=== PATIENT | female | born 1940 | race Caucasian/White ===

== ENCOUNTER 2017-04-13 22:53 | Inpatient (IN) ==
[2017-04-14] MEDS ORDERED: NS 1,000 ML IV ONE (00:31)
[2017-04-14] MEDS ORDERED: ZOFRAN IV PRN (00:31)
[2017-04-14] MEDS ORDERED: NICODERM PATCH TD PRN (00:32)
--- NOTE | 2017-04-14 02:59 | HISTORY AND PHYSICAL ---
CHIEF COMPLAINT: Dizziness and presyncope or a fainting episode. HISTORY OF PRESENT ILLNESS: Briefly, this is a 77-year-old female with history of hypertension and diabetes. She came in from home today, initially presented to [facility] with confusion and agitation for the last 3 or 4 days. She had a stomach flu-type episode of nausea, vomiting and diarrhea that is resolved as of 2 days ago. She has not been eating and drinking very well. The family has noted that she has been getting more and more confused. This is been going on for several, probably weeks, but has been getting more agitated over the last 3-4 days. Today she felt faint to the point where she thought she was going to pass out, did not completely pass out. She said she knew she would have fallen if she had not fallen. She would have passed out if she had not sat down. She did not actually pass out. She came the ER for evaluation. Her labs were basically normal. She had a head CT, and chest x-ray from 1 understand was unremarkable, no acute process. She is on hypothyroid, blood pressure and diabetic medications, but she only takes those medications very intermittently, and has not been to the PCP. Family noted that she was kind of hallucinating, talking to people that were not there. She was somewhat agitated. Her granddaughter is a nurse at our facility and states that she has been concerned about the fact that she was possibly developing dementia which had not been treated per se; however, again her workup there was really unremarkable. PAST MEDICAL HISTORY: 1. Type 2 diabetes, [id number]. 2. Hypertension. 3. Dyslipidemia. 4. Hypothyroidism. 5. Rheumatoid arthritis. PAST SURGICAL HISTORY: She has had a cholecystectomy. ALLERGIES: No known drug allergies. SOCIAL HISTORY: She smokes a pack a day. She has been doing that on and off for about 40 years, but she quit for about 6 or 7 years; now she is back to smoking. MEDICATION LIST: Being compiled, but she is on: 1. Metformin. 2. [place] p.r.n. 3. Verapamil. 4. Synthroid 50. 5. Lisinopril 5. REVIEW OF SYSTEMS: She has had reportedly a 40-pound weight loss over the last year. She denies any appetite issues, but otherwise denies chest pain or palpitation. She does admit to a cough which has been chronic. No fevers or chills. She has had the recent nausea, vomiting and diarrhea, but that has resolved. No hematochezia, no melena. PHYSICAL EXAMINATION: VITAL SIGNS: 172/74 blood pressure, heart rate 92, temperature 98.2, 94% on room air. 102 pounds. GENERALLY: Thin female, pleasant, in no acute distress. HEAD: Normocephalic, atraumatic. She is moran, but has numerous actinic keratoses along her forehead. HEENT: Pupils equal, round, and reactive to light. Extraocular movements were intact. On ear, nose and throat exam she had moist mucous membranes. NECK: Supple. No bruits. CARDIOVASCULAR: Regular rate and rhythm. No murmurs, gallops, or rubs. PULMONARY: Bilateral breath sounds clear to auscultation. GI: Soft, nontender, nondistended. Bowel sounds are positive. EXTREMITIES: No clubbing or cyanosis. LYMPHATICS: No peripheral edema. NEUROLOGICAL: Cranial nerves 2 through 12 were intact. However, lyxigl-tksw-vtsbwf there was distinct past pointing, more so on her left side than her right, but when her right was repeated she had dysmetria then too. She had trouble with the juks-ks-jrup task, but no noted dysdiadochokinesia. LABORATORY DATA: From outlying facility was really not too remarkable. Her EKG showed normal sinus rhythm, possible septal infarct. Her CBC I think was pretty much normal. There was no white count. Her cardiac enzymes were negative. She had a high hemoglobin and hematocrit of 16 and 52, somewhat elevated anion gap, but there was no acidosis. Her bicarbonate was normal at 23. BUN was 21. Head CT and chest x-ray again were reportedly clear; I have not directly seen those. ASSESSMENT: This is a 77-year-old female with history of hypertension and diabetes presenting with a confusion, acute encephalopathy episode and presyncope. PROBLEMS: 1. Presyncope. We will monitor on telemetry. Get serial cardiac enzymes and follow closely. Obtain carotid and echo. Continue gentle hydration and monitor. 2. Altered mentation. She does apparently have ataxia. There is some confusion. She has some listing, although it is not one versus the other, and she does exhibit dysmetria which makes me concerned about a cerebellar problem such as a cerebellar ataxia issue. We will progress with an MRI tomorrow if feasible to evaluate for infratentorial disease. There is no evidence of other disease. We will initiate aspirin therapy and follow. 3. Diabetes. Check blood sugars, fasting sugars. Sliding scale insulin. Check an A1c and monitor. 4. Hypertension. We may require further medications. Will continue to monitor closely. DISPOSITION: Pending her clinical status. I will get Physical Therapy to work with her because she does have difficulty with her gait, and will get Central Control Room Operator to help with discharge planning. cc: MD Kaylyn Medina MD
[2017-04-14 04:54] LABS: HEMATOCRIT 47.3 % (37.0-47.0); HEMOGLOBIN 15.9 g/dL (12.0-16.0); MCHC 33.6 g/dL (33-37); MCV 80.4 FL (81-99); RBC 5.88 XMIL (4.2-5.4)
[2017-04-14 05:08] LABS: HEMOGLOBIN A1C 6.3 % (4.8-6.0)
[2017-04-14 05:58] LABS: ALBUMIN 3.9 g/dL (3.5-5.0); ALKALINE PHOSPHATASE 65 U/L (32-104); DIRECT BILIRUBIN < 0.20 mg/dL (0.00-0.20); GOT 21 U/L (10-30); GPT 14 U/L (10-36); TOTAL BILIRUBIN 0.59 mg/dL (0.20-1.00); TOTAL PROTEIN 7.2 g/dL (6.3-8.3)
[2017-04-14] MEDS: LOVENOX SUBQ SCH (06:06)
[2017-04-14] MEDS: HUMULIN R SUBQ SCH ×4 (06:41→21:26)
[2017-04-14 09:13] LABS: URINE MICRO REVIEW NEEDED? NO; URINE SOURCE CLEAN CATCH
[2017-04-14 09:16] LABS: BILIRUBIN URINE NEGATIVE (NEGATIVE); BLOOD URINE SMALL (NEGATIVE); COLOR YELLOW; GLUCOSE URINE NEGATIVE (NEGATIVE); LEUKOCYTES URINE MODERATE (NEGATIVE); NITRITE URINE NEGATIVE (NEGATIVE); PH URINE 5.5; PROTEIN URINE 50 mg/dL (NEGATIVE); SP GRAVITY URINE 1.023; TURBIDITY URINE CLEAR (CLEAR); UR EPITHELIAL CELLS <10 /HPF (<10); URINE BACTERIA NEGATIVE /HPF; URINE CULTURE NEEDED? YES; URINE RBC <10 /HPF (<10); UROBILINOGEN URINE NORMAL (NORMAL)
[2017-04-14] MEDS ORDERED: ATIVAN PO ONE (10:07)
--- NOTE | 2017-04-14 11:26 | Diag Imaging Result Doc PS360 ---
EXAM: MRI BRAIN W W/O CONTRAST HISTORY: cva TECHNIQUE: MRI of the brain with and without gadolinium, T1 axial and sagittal, DWI, flair, T2 axial, gradient echo coronal and post gadolinium enhanced FSPGR 3-D axial with coronal reformation. COMMENT: There is no evidence of restricted diffusion. There is extensive abnormal T2 weighted signal intensity throughout the white matter both hemispheres both in the periventricular regions and some subcortical regions particularly in the centrum semiovale and frontal lobes. There is no evidence of bleed or abnormal extra-axial fluid collection. There is no evidence of abnormal gadolinium enhancement. IMPRESSION: Extensive chronic ischemic white matter change. No evidence of acute infarct or other acute abnormality. Electronically signed by Brayden Pacheco 04/14/2017 11:24 AM
[2017-04-14] MEDS: ASPIRIN EC PO SCH (11:41)
--- NOTE | 2017-04-14 13:44 | PROGRESS NOTE ---
DATE: 04/14/2017 SUBJECTIVE: This is a 77-year-old with a history of hypertension and diabetes, came in yesterday with dizziness, presyncope, and fainting spell. She originally presented to [facility] with confusion and agitation for 3-4 days, stomach flu-like episode, nausea, vomiting, and diarrhea; resolved 2 days ago. She has not been eating or drinking very well. Family noted that she had been getting more and more confused and it had been going on for several weeks and getting more agitated in the last 3-4 days. The day of admission she felt faint to the point that she thought she was going to pass out, did not completely pass out. She said she knew she would have fallen if she had gotten up and would have passed out if she had not sat down. Came to the emergency room. PAST MEDICAL HISTORY: Diabetes mellitus type 2, hypertension, dyslipidemia, hypothyroidism, rheumatoid arthritis. So presented with presyncope, altered mentation, a little more confusion which has been going on for a while, and history of diabetes. Her MRI of her head showed extensive chronic ischemia white matter change. No evidence of acute infarct or acute abnormality. She states that she still feels like her left side, her lining feller blindstitch strength and the left side of her leg are a little weak, although she is lifting that foot off the bed and her left lining feller blindstitch strength is 4. There are some words that seem to be hard for her to formulate. I do not see any facial asymmetry. No weakness in the left shoulder shrug but left lining feller blindstitch strength and possibly diminished strength in the left foot. SUBJECTIVE: General: Otherwise today she is awake and alert. No complaints of pain. vital signs: Remained afebrile. Temperature 99.1 degrees, pulse 85, respirations 23, blood pressure 171/69. Lungs: Clear in all lung gillette. Cardiovascular: Regular rhythm and rate without murmur or S3. Abdomen: Soft. Skin: Warm and dry. LABORATORY: White blood cell count 7,750, hematocrit 47, platelet count 199,000. Electrolytes: Hemoglobin A1c was 6.3. Otherwise creatinine and liver functions looked okay. Urinalysis unremarkable. ASSESSMENT AND PLAN: Admitted by Dr. Chester early this morning. 1. Presyncope. Continue present hydration and monitor. Will check carotid studies and echocardiogram. I am not sure if she has had a right hemisphere event or not. MRI did not reveal anything. 2. Altered mentation. Apparently has little ataxia, some confusion. This might be multifactorial. It sounds like she may have some underlying dementia as well. 3. Diabetes mellitus type 2. Follow pattern sugars. Hypertension. REVIEW OF HER ORDERS: I am going to ask neurology to see. cc: Lele Covarrubias MD
--- NOTE | 2017-04-14 17:34 | ECHO REPORT ---
ORDER DATE: 04/14/2017 INTERPRETING PHYSICIAN: Dr. Franco REQUESTING PHYSICIAN: CLINICAL INDICATIONS: Stroke, dizziness, presyncope. M-MODE MEASUREMENTS: Right ventricle: 3.1 cm. Left ventricle end diastole: 4.3 cm. Left ventricle end systole: 2.8 cm. Posterior wall: 1.1 cm. Interventricular septum: 1.1 cm. Left atrium: 4.0 cm. Aortic root: 2.6 cm. SUMMARY OF 2-DIMENSIONAL IMAGING: The left ventricular function is normal. Ejection fraction estimated at 68%. The ventricle is mildly enlarged. The aortic valve shows sclerosis of the cusps. There is no stenosis. Color flow mapping indicates a mild degree of regurgitation. The pulmonic valve looks normal with a mild degree of regurgitation. The tricuspid valve shows a vljk-mw-vxbriiwe degree of regurgitation. Pulmonary pressure estimated at 43-48 mmHg. The mitral valve looks normal. Color flow mapping indicates a mild degree of regurgitation. Pulse wave Doppler of mitral inflow shows reversal of the E and the A wave. Tissue Doppler of septal and lateral mitral annulus averages 5 cm per second. There is impaired left ventricular relaxation. Pulmonary venous flow shows a normal pattern. The left atrium is probably mildly enlarged. There is no pericardial effusion, masses or thrombus. IMPRESSION: In summary, this study shows: 1. Normal left ventricular systolic function. 2. Mild degree of mitral, aortic, and pulmonic regurgitation. 3. Moderate degree of tricuspid regurgitation with pulmonary pressure of 43-48 mmHg. 4. Impaired left ventricular relaxation noted. Clinical correlation recommended. cc: MD Chano Cardozo MD
[2017-04-14] MEDS: TYLENOL PO PRN (20:01)
--- NOTE | 2017-04-14 20:38 | CONSULTATION ---
DATE OF CONSULTATION: 04/14/2017 REASON FOR CONSULT: Syncope. HISTORY OF PRESENT ILLNESS: This is a 77-year-old right-handed female , with history of hypertension, diabetes and dyslipidemia who was admitted yesterday for dizziness with presyncope. There are several family members at bedside who provide the history. They report that the patient has had memory problems for at least the last 3 or so years. They have noticed that she tells the same story and that her executive functions have been limited. She has also not been taking her medications at least for the last month and a half, as if she ran out and did not bother to fill them. There is some concern that she does not take her medications accurately anyway. She is living at home alone, but does have someone there coming from time to time to help her out. She had been driving at 1 point, though the family is concerned about her driving abilities. More recently, she had a stomach virus that resolved maybe 3 or 4 days ago. This included nausea, vomiting and diarrhea. She had not been eating or drinking well at that time or since that time. Since she has gotten sick, she has had worsening confusion and agitation. Yesterday, she felt as though she might pass out. She was dizzy and lightheaded as though she would faint and was unable to stand up and felt that she needed to sit back down. They also report she has had some visual hallucinations where she for instance saw a cigarette coming out of her son's nose. She has also talked to people that are not there. She has at times not been able to identify family members. They say her current symptoms wax and wane. Yesterday was a better day than today, but then the day prior may have been worse. PAST MEDICAL HISTORY: Type 2 diabetes, hypertension, dyslipidemia, hypothyroidism, rheumatoid arthritis, cholecystectomy. SOCIAL HISTORY: She is a current smoker. No alcohol or illicits. She lives alone and has a helper that comes to the home to help out. She had been driving. HOME MEDICATIONS: Metformin, [place] p.r.n., verapamil, Synthroid and lisinopril. Though again, she had several bottles that were a month and a half old and were empty. ALLERGIES: No known drug allergies. FAMILY HISTORY: Noncontributory. REVIEW OF SYSTEMS: Per the record, she had reportedly had a 40 pound weight loss over the last year. There were no appetite issues. No chest pain. No palpitations. There has been a chronic cough, no fevers, no chills. She did have recent nausea vomiting and diarrhea, resolving 3-4 days ago. She has complained recently that her "kidneys" have been hurting. PHYSICAL EXAMINATION: Vital Signs: She has been afebrile, blood pressure 174/ 91, pulse 78, respirations 18. 94% on room air. General: This is an elderly female asleep, sitting up in bed, in no acute distress. She arouses to voice. HEENT: Mucous membranes are dry. Otherwise, unremarkable. Neck: Supple. No meningismus. Trachea midline. Cardiovascular : No edema, intact pulses. Lungs: No increased work of breathing. Normal chest rise and expansion. Abdomen: Soft, nontender, nondistended. Extremities: Warm, well perfused. No edema. Skin: Warm, dry, and intact. Neurologic: Mental status: She is asleep, initially arouses to voice and is able to remain awake. She sometimes stares off and is slow to respond and other times this is not present. She recognizes one family member, but then thinks her son is her [id number]-[id number] at . She does not know the president, but apparently would not know this anyway. She is not oriented to timing other than the month of March. She believes that she is at home. Follows simple and complex commands. Although at times, does have some difficulty with this. She requires frequent redirecting during the extended physical examination for her to properly participate. Cranial nerves: PERRL, conjugate gaze. Ocular movements are full. There may be some limitation of upgaze, but this is not definite and may be due to her confusion and inability to adequately follow the command. Face symmetric with equal activation. Facial sensation intact. Tongue is midline. Shoulder shrug full. Motor examination: No drift. Strength requires significant patience and redirecting, but I do not find any asymmetry on testing. Sensory exam is intact to light touch. Also to vibration and to joint position sense. Coordination: This is somewhat limited on testing due to her inability to understand all of the commands. She is not always accurate with finger to nose on either side, although again this is inconsistent and with extensive reorienting, she is able to perform these maneuvers. On the left arm , she adds in an additional step to finger to nose where she touches her knee in between. Reflexes are symmetric and reduced throughout. No clonus. Toes are mute. Gait: She is able to get to a standing position without assistance. She is able to walk casually without assistance. She does overall appear to be unsteady, but there is no focal listing to one side or the other. She is able to stand with her eyes closed, although tends to want to list backwards. She is able to correct it on her own usually, although certainly has the potential to fall. DIAGNOSTICS: MRI of the brain with and without contrast performed today was personally reviewed. There are extensive chronic white matter ischemic changes, but nothing acute. There is also global atrophy noted. LABORATORY: Reviewed in the chart. Of note, her urinalysis was showing 50 protein, 20 ketones, small blood, moderate leukocytes and 10-20 white blood cells, but no bacteria, less than 10 epithelial cells. Her liver function tests were not elevated. B12 378 , folate 23.6, TSH 0.96. CRP 3. Hemoglobin A1c was 6.3, white count normal. ASSESSMENT AND PLAN: A 77-year-old right-handed female with history of hypertension, diabetes, dyslipidemia, as well as long-standing history of what sounds to be at least mild cognitive impairment, but most likely an undiagnosed dementia process, presenting with encephalopathy and presyncopal episode in the setting of a recent stomach virus with reduced PO intake. Of note, she has also run out of her home medications and has not apparently had these filled for the last month and a half. With regards to her global encephalopathy, I suspect this is potentially related to a possible urinary tract infection as well as recent gastrointestinal illness with reduced p.o. intake in a patient that has an undiagnosed dementia process, making this a more dramatic change and more protracted that we would see. If such, it should improve with time and supportive care. I will order an EEG for further evaluation and can also evaluate the severity of the encephalopathy. I will add on an ammonia level. Her MRI did not show any acute findings which is reassuring, though global atrophy was noted. Additionally, the patient seems to have run out of her medications at home and/or may very well not be taking them correctly it sounds. This could be contributing as well. With regards to the presyncopal event, this potentially is related to the gastrointestinal illness and reduced p.o. intake, but it does not sound per history that there was actually loss of consciousness, and per their report, there has not been any previous loss of consciousness. I agree with telemetry monitoring and again will order an EEG. Thank you for this consultation. I will follow. cc: Suzy Nj MD MTDD
[2017-04-14] MEDS: NICODERM PATCH TD SCH (21:25)
[2017-04-15 02:09] LABS: BASO% 0.6 % (0.0-0.8); EOS# 0.03 X1000 (0.0-0.7); EOS% 0.4 % (0.0-10.0); HEMATOCRIT 48.2 % (37.0-47.0); HEMOGLOBIN 15.8 g/dL (12.0-16.0); IMM GRAN# 0.02 X1000 (0.0-0.04); IMM GRAN% 0.2 % (0.0-0.5); LYMPH# 2.78 X1000 (1.2-3.4); LYMPH% 32.5 % (20.5-51.1); MANUAL DIFF NEEDED? NO; MCH 26.2 PG (27-31); MCHC 32.8 g/dL (33-37); MCV 79.9 FL (81-99); MONO# 0.86 X1000 (0.11-0.59); MONO% 10.1 % (1.7-9.3); MPV 10.8 FL (7.4-10.4); NEUT% 56.2 % (42.2-75.2); PLT 212 X1000 (130-400); RBC 6.03 XMIL (4.2-5.4)
[2017-04-15 02:20] LABS: AGAP 10; ALBUMIN 3.7 g/dL (3.5-5.0); ALKALINE PHOSPHATASE 59 U/L (32-104); BUN 20 mg/dL (8-22); CHLORIDE 97 mmol/L (98-107); COSMO 273; GOT 22 U/L (10-30); GPT 14 U/L (10-36); POTASSIUM 4.3 mmol/L (3.5-5.1); SODIUM 136 mmol/L (136-145); TCO2 29 mmol/L (25-35); TOTAL BILIRUBIN 0.66 mg/dL (0.20-1.00); TOTAL PROTEIN 6.8 g/dL (6.3-8.3)
[2017-04-15] MEDS: ROCEPHIN 1 GM in NS 50 ML IV SCH (03:15)
[2017-04-15] MEDS: LOVENOX SUBQ SCH (05:32)
[2017-04-15] MEDS: HUMULIN R SUBQ SCH ×4 (06:49→22:51)
[2017-04-15] MEDS: NICODERM PATCH TD SCH (12:12)
[2017-04-15] MEDS: ASPIRIN EC PO SCH (12:12)
[2017-04-15] MEDS: TYLENOL PO PRN (14:33)
--- NOTE | 2017-04-15 16:33 | EEG REPORT ---
DATE: 04/15/2017 REFERRING PHYSICIAN: Suzy Nj MD; Lele Covarrubias MD. EEG NUMBER: [id number]. AUXILIARY POWER EQUIPMENT OPERATOR: Rosa Austin. BACKGROUND INFORMATION TECHNIQUE: A digitally recorded EEG is obtained with 1 additional channel for EKG. HISTORY OF PRESENT ILLNESS: This is a 77-year-old female with presyncope or syncope, altered mental status. EEG is ordered to detect evidence of possible seizures. Medications include p.r.n. Ativan, aspirin, ceftriaxone, nicotine, Zofran. EEG FINDINGS: A posterior dominant alpha rhythm is notably absent. The background consists of mixed theta greater than delta range frequencies with admixed faster frequencies. Frontal intermittent rhythmic delta activity (FIRDA) is noted. No definite epileptiform discharges. No seizures. Hyperventilation was not performed. Photic stimulation did not alter the record. Brief drowsiness is seen but stage II sleep is not achieved. The EKG reveals regular RR intervals. IMPRESSION AND CLINICAL CORRELATION: Abnormal routine EEG due to 1. Mild to moderate generalized background slowing with FIRDA, indicative of a mild to moderate nonspecific encephalopathy. Generalized slowing is a nonspecific finding that can be seen in processes that diffusely affect the cerebrum, including toxic, metabolic, post hypoxic, pharmacologic, and infectious etiologies. FIRDA is also a nonspecific finding but can be seen in metabolic encephalopathies and certain midline lesions. No epileptiform discharges and no seizures are noted on the current study. This does not rule out an underlying seizure disorder. Clinical correlation is advised. cc: Suzy Nj MD MTDD
--- NOTE | 2017-04-15 18:00 | PROGRESS NOTE ---
DATE: 04/15/2017 SUBJECTIVE: Ms. Castro is feeling better today. She has not had any more events to suggest presyncope. Carotid studies, echocardiogram all reviewed, unremarkable. Brain MRI was unremarkable. Echocardiogram, good left ventricular function. MRI showed extensive chronic ischemic white matter. No evidence of acute infarct. Dr. Nj evaluated yesterday. She is considering doing an EGD. So far workup unremarkable. I reviewed orders. cc: Lele Covarrubias MD
--- NOTE | 2017-04-15 19:30 | Diag Imaging Result Doc PS360 ---
EXAM: CHEST-2 VIEWS - 04/15/2017 HISTORY: Productive cough/fever TECHNIQUE: Chest two views COMPARISON: None. FINDINGS: There is mild cardiomegaly. Apparent mild COPD changes. There is mild infiltrate or scarring at the right base, there is slight pleural thickening at the lateral right base. There is no dense consolidation, substantial pleural effusion, or pneumothorax identified. 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 IMPRESSION: Mild cardiomegaly. Mild COPD changes. Mild infiltrate or scarring at right base. The possibility of bronchopneumonia cannot be excluded. Electronically signed by Dov Oliva 04/15/2017 7:27 PM
[2017-04-15] MEDS ORDERED: TESSALON PO PRN (21:06)
[2017-04-15] MEDS ORDERED: DUONEB (A & A) INH PRN (21:06)
[2017-04-15] MEDS ORDERED: ZITHROMAX 500 MG/NS 500 MG/250 ML IVPB IV SCH (21:15)
--- NOTE | 2017-04-15 21:54 | PROGRESS NOTE ---
DATE: 04/15/2017 SUBJECTIVE: Patient is doing better today. She has been ambulating to the bathroom unassisted. She is more alert and has been more interactive and spontaneous. She has recognized her family members more readily although there is still some confusion at times. She is not at her baseline. OBJECTIVE: Vital signs: She has had some mild fever overnight and this morning , currently afebrile, blood pressure 137/59, pulse 70s. General: This is an elderly female , sitting up in bed, in no acute distress. She is awake when I enter the room. Her family is at bedside. She regards. HEENT: Mucous membranes are dry. Neck: Supple. No meningismus. Mental status: When I enter the room regards easily. She is a bit more spontaneous today and certainly more alert. She does have some periods where she is slower to respond and still requires some redirection though not to the extent that she was requiring yesterday. Identified her 2 sons in the room. Oriented to self. She is not otherwise oriented with the exception of the month of March. She is able to follow simple and complex commands. She has some difficulty with left/right distinction, but not with digit distinction. Cranial nerves PERRL, conjugate gaze. Ocular movements intact in the horizontal direction. Symmetric with equal activation. Tongue is midline. Shoulder shrug full. Motor exam no drift. No asymmetry on strength testing. Sensation was intact. She is accurate with [id number]-fk-[id number] on the right, although she initially had some over shooting with the left. Yesterday she had overshooting on both sides. She is able to correct this with redirecting, however. No clonus. Toes are mute. I do not see the listing backwards that I was seeing yesterday. Lab work was reviewed. Notable normal white count. Urinalysis preliminary was no growth. Ammonia level was within normal limits. EEG was personally reviewed and shows mild to moderate generalized slowing with FIRDA. This is nonspecific and consistent with a mild to moderate nonspecific encephalopathy. No epileptiform discharges or seizures were noted on the current study. ASSESSMENT AND PLAN: 1. Global encephalopathy in the setting of stomach virus and reduced p.o. intake as well as possible contribution from not properly taking her home medications and this is all in setting of someone with a likely undiagnosed dementia process. Clinically improved today compared to yesterday, but not baseline. Now with fevers overnight. Urine culture was preliminary no growth. She has been coughing quite a bit so a chest x-ray may be warranted. She does not have meningismus. It is reassuring that she has shown some notable improvement in the last 24 hours and I suspect she will continue to gradually improve. The EEG also did not show any evidence of increased propensity for seizures. An ammonia level was normal. She has not had any further presyncopal events. cc: Suzy Nj MD MTDD
[2017-04-16] MEDS ORDERED: MELATONIN PO ONE (01:04)
[2017-04-16] MEDS: ROCEPHIN 1 GM in NS 50 ML IV SCH (04:09)
[2017-04-16] MEDS: PRINIVIL PO SCH ×2 (05:56→09:34)
[2017-04-16] MEDS: LOVENOX SUBQ SCH (05:56)
[2017-04-16] MEDS: HUMULIN R SUBQ SCH ×3 (06:01→16:41)
--- NOTE | 2017-04-16 07:58 | Carotid Study ---
DATE: 04/14/2017 PROCEDURE: Bilateral duplex and color flow imaging of the carotid arteries was performed using the GE Vivid E9 ultrasound system with a 9L-D transducer. REFERRING PHYSICIAN: Chano Chester MD. INTERPRETING PHYSICIAN: Kar Mak MD. TECH: Jonathan. INDICATIONS: TIA with ataxia and altered mental status. OBSERVED DATA RIGHT LEFT Brachial Blood Pressure Carotid Pulse Bruits: Carotid/Sub DIAGRAM OF ULTRASOUND IMAGING R L RIGHT INT EXT INT EXT LEFT Freeman (cm/s) Freeman (cm/s) Subclavian 137/0 Subclavian 127/0 CCA Proximal 87/11 CCA Proximal 79/12 CCA Distal 63/10 CCA Distal 66/10 Bulb 77/12 Bulb 125/19 ICA Proximal 94/17 ICA Proximal 87/22 ICA Mid 100/23 ICA Mid 83/23 ICA Distal 88/20 ICA Distal 92/19 ECA 270/15 ECA 175/11 Vertebral Not seen. Vertebral 87/15 A ICA/CCA Ratio 1.15 ICA/CCA Ratio 1.17 % Stenosis 0-39 % Stenosis 0-39 FINDINGS: There appears to be irregular calcific plaques at the level of the carotid bulbs which at this time, although visually significant, do not produce a hemodynamically significant flow- limiting stenosis by strict velocity criteria. 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 INTERPRETATION: Although there is no hemodynamically significant flow-limiting stenosis noted by strict velocity criteria, visually, the patient does have irregular calcific plaque noted to bilateral carotid arteries at the level of the bulb which may merit short-interval followup. 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 There appears to be some collateralization per the manometer technician's notes. Given these findings, a CT angiography may be merited. cc: MD Chano Gallegos MD
[2017-04-16] MEDS: NICODERM PATCH TD SCH (09:34)
[2017-04-16] MEDS: ASPIRIN EC PO SCH (09:34)
--- NOTE | 2017-04-16 14:14 | PROGRESS NOTE ---
DATE: 04/16/2017 Ms. Castro is awake, alert, attentive. I believe she is more spontaneous today than before. Speech is not dysarthric now. Language function is intact on brief testing. I did not test her cognitive function. I observed her standing and walking with a slightly apractic and unsteady gait. Discussed at some length with son at the bedside. NEUROLOGY IMPRESSION: She has a baseline cognitive impairment syndrome. In that setting, any toxic or metabolic disturbance is likely to be associated with more dramatic and more protracted global encephalopathy, features that are consistent with her clinical course. Brain MRI 04/14/2017 showed chronic changes, but nothing focal or acute. That is reassuring. I do not think we need anything further from neurologic standpoint. I discussed cholinesterase inhibitor trial with son and that might be considered when she is stable medically. No new suggestions today from a neurologic standpoint. cc: Shani Cota III, MD MTDD
[2017-04-16 15:57] VITALS: BP 164/54
--- NOTE | 2017-04-16 17:16 | PROGRESS NOTE ---
DATE: 04/16/2017 SUBJECTIVE: Ms. Castro is better. She wants to go home. She is sitting up. She is eating a little bit but family is frustrated that she is not eating a lot. They want to supplement. We to talked about supplementing with some Glucerna. She is stronger. She is ambulating. The plan is to take her home I think with home health and with 1 of her sons. OBJECTIVE: Vital signs: Temp is 99 degrees, pulse 72, respirations 18, blood pressure 164/54. Lungs: Clear in all lung gillette. Cardiovascular: Regular rhythm and rate without murmur or S3. Abdomen: Soft. Skin: Warm and dry. LABS: No new lab. Blood sugars have been 116, 109, 127. ASSESSMENT AND PLAN: She is more spontaneous and doing better. Baseline cognitive impairment syndrome. In that setting any toxic or metabolic might be associated with more dramatic and more protracted global encephalopathy features consistent with her clinical course. Brain MRI showed chronic changes but nothing focal or acute. So, hope to send her home. We did discuss cholinesterase inhibitor trial with her son. Might be considered if she is stable medically. No other new suggestions. cc: Lele Covarrubias MD
--- NOTE | 2017-04-16 17:22 | DISCHARGE SUMMARY ---
ADMISSION DATE: 04/13/2017 DISCHARGE DATE: Presented with complaints of dizziness, presyncope and fainting episode. 77-year-old with history of hypertension and with diabetes. Came in from home. Initially presented to [facility] with confusion and agitation for the last 3 or 4 days and she had a stomach flu type episode, nausea, vomiting and diarrhea that resolved about 2 days prior. She had not been eating or drinking very well. Family noted she was getting more and more confused and this has been going on for several weeks. Getting more agitated in the last 3 or 4 days. [place] faint to the point where she thought she was going to pass out. Did not completely pass out however. She said she knew she would have fallen if she did not sit down, she would have passed out. She did not actually pass out. She came to the emergency room for evaluation. Her labs were basically normal. A CT and chest x-ray were all unremarkable. Hypothyroid. She is on hypothyroid medicine, blood pressure medicine, diabetic medications. She also takes these medications very intermittently and has not been to her primary care physician in a while. Family noted that she was kind of hallucinating and talking to people that were not there. She was somewhat agitated. Her granddaughter is a nurse at our facility and states that she has been concerned about the fact that she is possibly developing dementia and has not been treated per se. PAST MEDICAL HISTORY: 1. Diabetes mellitus type 2. Not on insulin at this time. 2. Hypertension. 3. Dyslipidemia. 4. Hypothyroidism. 5. Rheumatoid arthritis. PAST SURGICAL HISTORY: She has had a cholecystectomy. So she is admitted for presyncope. She had cardiac enzymes checked and also altered mentation, a concern about cognitive decline with underlying history of diabetes. She had a brain MRI done on 04/14/2017, extensive chronic white matter changes. No evidence of acute infarct or other acute abnormality. She had an echocardiogram done on 04/14/2017 showed normal left ventricular systolic function. Mild degree of mitral aortic and pulmonic regurgitation, mild degree of tricuspid regurgitation. Pulmonary pressure was 43 to 48 mmHg. She had impaired left ventricular relaxation as noted. Dr. Nj was consulted on the and felt like she had longstanding what sounds like at least mild cognitive impairment and most likely undiagnosed dementia process presenting as encephalopathy, presyncopal episodes in the setting of recent stomach virus, reduced p.o. intake. She has run out of her medication, apparently has not filled these the last month and a half and so thought she had some global encephalopathy. She possibly had a urinary tract infection. This was treated but seemed to show improvement. EEG was checked and MRI and it did not reveal any significant findings and may want to try to go home on 04/16/2017 and she is going to go home with her son. I encouraged home health. Follow up chest x-ray on the , mild cardiomegaly, mild COPD mild scarring in the right base. Possibility of pneumonia was included but clinically did not show signs of pneumonia. DISCHARGE MEDICATION: She will take aspirin 81 mg a day, Tessalon Perles p.r.n., Prinivil 5 mg a day, nicotine patch 21 mg p.r.n. daily. cc: Lele Covarrubias MD
== END 2017-04-16 18:22 | disposition home or self-care (01) ==
LOC: 3N 22:53 → SUATTDRO 22:53
PROVIDERS: ATTEND Emergency Medicine

== ENCOUNTER 2018-09-14 10:38 | Observation (INO) ==
[2018-09-14] MEDS ORDERED: TYLENOL PO ONE (10:56)
--- NOTE | 2018-09-14 11:21 | Diag Imaging Result Doc PS360 ---
EXAM: CHEST-2 VIEWS HISTORY: copd fever cough TECHNIQUE: PA and Lateral chest x-ray COMPARISON: 04/15/2017 FINDINGS: There is stable cardiomegaly. Calcific atherosclerotic disease is noted within the aorta. There is pulmonary vascular congestion and bilateral interstitial infiltrates most prominent at the bases. Findings may indicate developing interstitial cardiogenic edema or atypical pneumonia. There is pulmonary emphysema. There are trace bilateral effusions. Surgical hardware lower cervical spine. IMPRESSION: Increasing interstitial infiltrates, likely developing cardiogenic interstitial edema or atypical pneumonia. Trace effusions. Electronically signed by Michelle Scott 09/14/2018 11:19 AM
[2018-09-14 11:23] LABS: INFLUENZA A POSITIVE (NEGATIVE); INFLUENZA B NEGATIVE (NEGATIVE)
[2018-09-14] MEDS ORDERED: TAMIFLU PO ONE (11:39)
[2018-09-14] MEDS ORDERED: ROCEPHIN IV ONE (11:39)
[2018-09-14] MEDS ORDERED: NS 500 ML IV ONE (11:40)
[2018-09-14] MEDS ORDERED: DUONEB (A & A) INH ONE (11:40)
[2018-09-14 11:45] LABS: BILIRUBIN URINE NEGATIVE (NEGATIVE); BLOOD URINE 2+ (NEGATIVE); CLARITY CLEAR (CLEAR); COLOR YELLOW; GLUCOSE URINE NEGATIVE (NEGATIVE); KETONE URINE NEGATIVE (NEGATIVE); LEUKOCYTES URINE NEGATIVE (NEGATIVE); NITRITE URINE NEGATIVE (NEGATIVE); PROTEIN URINE 1+(30 mg/dL) mg/dL (NEGATIVE); UROBILINOGEN URINE NORMAL
[2018-09-14] MEDS ORDERED: ROCEPHIN 1 GM in NS 50 ML IV ONE (11:52)
[2018-09-14 11:54] LABS: URINE EPITHELIAL CELLS <10 /HPF (<10); URINE SOURCE CLEAN CATCH; URINE WBC <10 /HPF (<10)
[2018-09-14 12:05] LABS: BASO# 0.02 X1000 (0.0-0.2); BASO% 0.4 % (0.0-0.8); EOS# 0.04 X1000 (0.0-0.7); EOS% 0.8 % (0.0-10.0); HEMATOCRIT 41.9 % (37.0-47.0); HEMOGLOBIN 13.9 g/dL (12.0-16.0); IMM GRAN# 0.01 X1000 (0.0-0.04); IMM GRAN% 0.2 % (0.0-0.5); LYMPH# 0.56 X1000 (1.2-3.4); LYMPH% 10.7 % (20.5-51.1); MCHC 33.2 g/dL (33-37); MCV 81.4 FL (81-99); MONO# 0.36 X1000 (0.11-0.59); MONO% 6.9 % (1.7-9.3); MPV 9.9 FL (7.4-10.4); NEUT# 4.26 X1000 (1.4-6.5); PLT 201 X1000 (130-400); RBC 5.15 XMIL (4.2-5.4); RDW 14.7 % (11.5-14.5); WBC 5.25 X1000 (4.8-10.8)
[2018-09-14 12:20] LABS: AGAP 12; ALBUMIN 3.3 g/dL (3.5-5.0); ALKALINE PHOSPHATASE 65 U/L (32-104); BUN 16 mg/dL (8-22); CHLORIDE 98 mmol/L (98-107); COSMO 269; CREATININE 0.7 mg/dL (0.5-0.9); ESTIMATED GFR > 60; GLUCOSE 124 mg/dL (70-104); GOT 24 U/L (10-30); GPT 10 U/L (10-36); POTASSIUM 4.3 mmol/L (3.5-5.1); SODIUM 133 mmol/L (136-145); TCO2 24 mmol/L (25-35)
[2018-09-14] MEDS ORDERED: NS 1,000 ML ONE (12:21)
--- NOTE | 2018-09-14 13:52 | PROVIDER DOCUMENTATION ---
This chart was entered by Sosa Bain Scribe, acting as scribe for Abena Ramirez MD. HPI-General Adult - General Chief Complaint: General Adult Stated Complaint: DEMENTIA / UTI Time Seen by Provider: 09/14/18 11:30 Source: patient Allergies/Adverse Reactions: Patient Allergies Allergy/AdvReac Type Severity Reaction Status Date / Time No Known Allergies Allergy Verified 01/01/18 06:09 Home Medications: Home Medication List Medication Instructions Recorded Confirmed Last Taken Type Levothyroxine [Synthroid] 50 microgm PO DAILY 04/14/17 04/14/17 Unknown History Lisinopril 5 mg PO DAILY 04/14/17 04/14/17 Unknown History Metformin HCl [Metformin HCl ER] 500 mg PO DAILY 04/14/17 04/14/17 Unknown History Aspirin EC 81 mg PO DAILY tablet 04/16/17 Unknown Rx Benzonatate [Tessalon] 100 mg PO TID PRN PRN #40 capsule 04/16/17 Unknown Rx Nicotine Patch [Nicoderm Patch] 21 mg TD DAILY #14 patch.[id number] 04/16/17 Unknown Rx - History of Present Illness -Gen Adult Nature of Presenting Problems: Patient is a 78 year old female who presents to the ED with flu like symptoms. Patient states symptoms of fever, body aches, nasal drainage, sore throat and cough. Patient states symptoms started yesterday. Patient denies vomiting and diarrhea. Location of Pain/Injury: reports: generalized Pain Radiation: reports: no radiation Quality of Pain: reports: aching Severity: reports: mild Onset/Duration: reports: 24 hours ago Timing: reports: still present Context/Activities at Onset: reports: light activity Modifying Factors: improves with: nothing Associated Symptoms: reports: cough, EENT symptoms (sore throat), fever/chills ( fever), sinus congestion/drainage (drainage) Similar Symptoms Previously?: Yes (present since yesterday) Recently seen or treated by another doctor?: No Review of Systems - Adult - REVIEW OF SYSTEMS - ADULT Constitutional: reports: fever. denies: chills, fatique Eyes: reports: no symptoms reported Ears, Nose, Mouth & Throat: reports: sinus problem (drainage), throat pain. denies: ear pain, nose pain Cardiovascular: reports: no symptoms reported Respiratory: reports: cough. denies: shortness of breath, wheezing Gastrointestinal: reports: no symptoms reported Genitourinary: reports: no symptoms reported Musculoskeletal: reports: muscle aches. denies: back pain, neck pain Integumentary: reports: no symptoms reported Neurological: reports: no symptoms reported Psychiatric: reports: no symptoms reported Endocrine: reports: no symptoms reported Hematologic/Lymphatic: reports: no symptoms reported Allergic/Immunologic: reports: no symptoms reported All Other Systems: Reviewed and Negative Past History - Adult - PAST MEDICAL HISTORY-ADULT Review of Records: reports: Nursing Assessment Review, Medications Reviewed, Social history reviewed & non-contributory. Major Childhood Illnesses: reports: denies history Cardiovascular: reports: HTN, hyperlipidemia Respiratory: reports: denies history Gastrointestinal: reports: denies history Obstetrical/Gynecological: reports: denies history Genitourinary: reports: denies history Musculoskeletal: reports: denies history Neurological: reports: dementia Psychiatric: reports: denies history Endocrine/Immune: reports: Diabetes, thyroid disorder Other Conditions: reports: denies history - PRIOR SURGERIES/PROCEDURES Surgical/Procedure History: reports: reviewed, not pertinent - IMMUNIZATION STATUS Childhood Immunizations: See Nurse Assessment Flu Vaccine: See Nurse Assessment - FAMILY HISTORY Family History: reviewed, not pertinent - SOCIAL HISTORY Smoking: cigarettes, greater than 1 pack/day Provider spent 3-5 mins advising pt. on dangers of tobacco.: Discussed manners to quit use, and f/u contacts for add'l counseling. Substance Use: denies Living Situation: family Physical Exam-General - PHYSICAL EXAM-ADULT Initial Vital Signs Reviewed: Yes - CONSTITUTIONAL General Appearance: alert, no apparent distress - HEAD, EARS, NOSE, MOUTH & THROAT HENMT: other (dry mucous membranes. edema to bilateral nares.) - NECK Neck: normal inspection - RESPIRATORY Respiratory: chest non-tender, decreased breath sounds (left), rhonchi ( bilateral) - CARDIOVASCULAR Cardiovascular: normal peripheral pulses, regular rate, rhythm - GASTROINTESTINAL (ABDOMEN) Abdominal Exam: normal bowel sounds, non tender, soft - MUSCULOSKELETAL Extremity: normal inspection - SKIN Integumentary: normal color, normal turgor, warm/dry - NEUROLOGIC Neurologic: grossly normal - PSYCHIATRIC Psych/Mental Status: normal mood/affect, oriented x 3 Progress - PLAN OF CARE/RESULTS Progress/Plan/Lab Results: Vital Signs - 8 hr 09/14/18 10:46 Temperature 101 F H Pulse Rate 63 Respiratory Rate 18 Blood Pressure 150/69 O2 Sat by Pulse Oximetry 90 L Laboratory Results - last 24 hr 09/14/18 11:04 Influenza A (Rapid) POSITIVE A Influenza B (Rapid) NEGATIVE Orders Category Date Time Status CHEST-2 VIEWS [RAD] Stat Exams 09/14/18 10:[address] Stat Lab 09/14/18 11:[address] W/POSS RFLX CULT [URINALYSIS] Stat Lab 09/14/18 11:04 Received Acetaminophen [Tylenol] Med 09/14/18 10:56 Discontinued 1,000 mg PO NOW ONE Result Diagrams: 09/14/18 11:51 09/14/18 11:51 - XRAY 1 XRAY Study: Chest Impression: See EMR Report ( EXAM: CHEST-2 VIEWS HISTORY: copd fever cough TECHNIQUE: PA and Lateral chest x-ray COMPARISON: 04/15/2017 FINDINGS: There is stable cardiomegaly. Calcific atherosclerotic disease is noted within the aorta. There is pulmonary vascular congestion and bilateral interstitial infiltrates most prominent at the bases. Findings may indicate developing interstitial cardiogenic edema or atypical pneumonia. There is pulmonary emphysema. There are trace bilateral effusions. Surgical hardware lower cervical spine. IMPRESSION: Increasing interstitial infiltrates, likely developing cardiogenic interstitial edema or atypical pneumonia. Trace effusions. Electronically signed by Michelle Scott 09/14/2018 11:19 AM 09/14 1119 Interpreting Physician: Michelle Scott MD Dictated Date/Time: 09/14/18 1115 cc: Abena Ramirez MD; Kaylyn Auguste) - CONSULTS/PCP/HOSPITALIST Notification #1 *Consult/PCP/Hospitalist*: Dr. Chester Time Discussed: 13:20 Reason/Comments: Dr. Ramirez consulted with Dr. Chester about patient. Consult Disposition: Will see in ED, Admit Departure - Departure Date of Disposition Decision: 09/14/18 Time of Disposition Decision: 12:53 DIAGNOSIS: Influenza, Pneumonia, Hypoxia Disposition: ADMITTED INPATIENT 09 Certified Medical Emergency: Emergent Condition: Fair Referrals and Follow-Ups: Kaylyn Auguste [Primary Care Provider] - - Critical Care Note This patient required my direct & personal management of CC.: Yes Total Time (mins): 33 Critical Care Statement: This patient required my direct personal management to treat or rule out processes, the absence of which, could potentiallly result in sudden, clinically significant life or limb threatening deterioration. Attestation - Physician/ FARAZ Attestation The physician spent face to face time with patient:: Yes Advanced Practice Provider documentation review:: Supervising physician onsite and consulted in the evaluation and care of this patient. The physician did have a face to face encounter with the patient. This chart was documented by the indicated scribe, (Sosa Bain Scribe) and accurately reflects the services I performed and decisions made by me, Abena Ramirez MD, as attested by the provider's signature.
--- NOTE | 2018-09-14 15:48 | HISTORY AND PHYSICAL ---
PRIMARY CARE PHYSICIAN: Kaylyn Auguste MD CHIEF COMPLAINT: Fever body aches, sore throat, and cough that began yesterday. HISTORY OF PRESENTING ILLNESS: This is a 78-year-old female, who presents to [facility] ER with complaints of fever, body aches, nasal drainage, sore throat, and a cough that began yesterday and progressively worsened. Workup in the emergency room showed influenza A positive, influenza B negative. A chest x-ray that showed increasing interstitial infiltrates, likely developing cardiogenic interstitial edema or atypical pneumonia with trace effusion, so she is being admitted to the medical unit for further evaluation and treatment. It is also noted when she arrived she had a temperature of 101 degrees and a room air saturation of 90%. PAST MEDICAL HISTORY: Hypertension, hyperlipidemia, diabetes, and hypothyroidism. PAST SURGICAL HISTORY: None. FAMILY HISTORY: Reviewed and noncontributory. SOCIAL HISTORY: She currently lives with family. Smokes a pack of cigarettes a day and has done so for 50 years. Denies any alcohol or illicit drug use. ALLERGIES: She has no known drug allergies. HOME MEDICATIONS: We will need to obtain a current list and restart as appropriate. We will place an order for Nursing to update and confirm home medications. DIAGNOSTIC DATA: White blood cell count of 5.25, hemoglobin 13.9, hematocrit 41.9, platelets 201,000. Sodium 133, potassium 4.3, chloride 98, CO2 24, BUN of 16, creatinine 0.7, glucose 124. Urinalysis was negative. Influenza A positive. Influenza B negative. Chest x-ray showed increasing interstitial infiltrates, likely developing cardiogenic interstitial edema or atypical pneumonia and trace effusions. REVIEW OF SYSTEMS: She was positive for a subjective fever, chills, body aches , sore throat, and cough with some mild shortness of breath. Denied any abdominal pain, constipation, diarrhea, burning, or hurting with urination. PHYSICAL EXAMINATION: VITAL SIGNS: On arrival, she had a temperature of 101 degrees, pulse 63, respirations 18, blood pressure 150/69, O2 saturation of 90% on room air. Temperature currently is 101.2 degrees with a room air saturation of 85%, has been placed on 2 L via nasal cannula. GENERAL: This is a 78-year-old female, who is lying in the bed and answers questions appropriately. HENMT: Normocephalic, atraumatic. Normal ENT inspection. Oropharynx and nares are clear. EYES: Equal, round, and reactive to light and accommodation. Extraocular movements are intact. NECK: Normal inspection. Normal range of motion. LUNGS: With some rhonchi bilaterally with decreased breath sounds. Equal lung expansion and chest wall movement. O2 via nasal cannula currently in use. HEART: With regular rate and rhythm. No murmurs, rubs, or gallops. ABDOMEN: Soft, nontender, nondistended. Bowel sounds are present x4 quadrants. MUSCULOSKELETAL: She has 4/5 strength x4 extremities. NEUROLOGICAL: The cranial nerves 2 through 12 are grossly intact. ASSESSMENT: 1. Influenza A. 2. Atypical pneumonia. 3. An acute respiratory failure. 4. Tobacco abuse. PLAN: She is being admitted to the medical unit at [facility]. Placed on telemetry. O2 per protocol. Diabetic diet. Rocephin 1 gram IV q.24 h. Azithromycin 500 IV q.24 h. Tamiflu 75 mg p.o. b.i.d. Bed rest with bedside commode. Nursing is to update and confirm her home medications and then will restart those after we review them as appropriate. We will recheck a CBC/BMP in the a.m. Further orders after seen by attending. Dictated by GARRICK Arevalo for Chano Chester MD cc: GARRICK Arevalo MD Faye Wilson, MD [facility] CENTERLayo
[2018-09-14] MEDS ORDERED: TYLENOL PO PRN (16:53)
[2018-09-14] MEDS ORDERED: ZOFRAN IV PRN (16:53)
[2018-09-14] MEDS: DUONEB (A & A) INH SCH ×3 (17:10→22:43)
[2018-09-14] MEDS: TAMIFLU PO SCH (21:42)
[2018-09-14] MEDS: ZITHROMAX 500 MG/NS 500 MG/250 ML IVPB IV SCH (22:06)
[2018-09-15] MEDS: DUONEB (A & A) INH SCH ×6 (03:22→23:14)
[2018-09-15 06:35] LABS: BASO# 0.01 X1000 (0.0-0.2); BASO% 0.2 % (0.0-0.8); EOS# 0.06 X1000 (0.0-0.7); EOS% 1.2 % (0.0-10.0); HEMATOCRIT 43.3 % (37.0-47.0); HEMOGLOBIN 13.6 g/dL (12.0-16.0); IMM GRAN# 0.02 X1000 (0.0-0.04); IMM GRAN% 0.4 % (0.0-0.5); LYMPH% 21.7 % (20.5-51.1); MCH 25.8 PG (27-31); MCHC 31.4 g/dL (33-37); MONO# 0.48 X1000 (0.11-0.59); MONO% 9.4 % (1.7-9.3); MPV 10.4 FL (7.4-10.4); NEUT# 3.41 X1000 (1.4-6.5); NEUT% 67.1 % (42.2-75.2); PLT 208 X1000 (130-400); RBC 5.28 XMIL (4.2-5.4); RDW 14.6 % (11.5-14.5); WBC 5.08 X1000 (4.8-10.8)
[2018-09-15 06:48] LABS: AGAP 12; BUN 10 mg/dL (8-22); CALCIUM 8.8 mg/dL (8.8-10.2); CHLORIDE 100 mmol/L (98-107); COSMO 278; CREATININE 0.6 mg/dL (0.5-0.9); ESTIMATED GFR > 60; GLUCOSE 86 mg/dL (70-104); POTASSIUM 3.7 mmol/L (3.5-5.1); SODIUM 140 mmol/L (136-145); TCO2 28 mmol/L (25-35)
[2018-09-15 07:45] LABS: BILIRUBIN URINE NEGATIVE (NEGATIVE); BLOOD URINE 1+ (NEGATIVE); CLARITY CLEAR (CLEAR); COLOR YELLOW; GLUCOSE URINE NEGATIVE (NEGATIVE); KETONE URINE NEGATIVE (NEGATIVE); LEUKOCYTES URINE TRACE (NEGATIVE); NITRITE URINE NEGATIVE (NEGATIVE); PROTEIN URINE TRACE mg/dL (NEGATIVE); UROBILINOGEN URINE NORMAL
[2018-09-15 07:47] LABS: URINE EPITHELIAL CELLS <10 /HPF (<10); URINE RBC <10 /HPF (<10); URINE SOURCE CLEAN CATCH; URINE WBC <10 /HPF (<10)
[2018-09-15] MEDS: TAMIFLU PO SCH ×2 (08:19→21:35)
[2018-09-15] MEDS: CATAPRES PO SCH ×2 (12:24→21:35)
[2018-09-15] MEDS: ROCEPHIN 1 GM in NS 50 ML IV SCH (16:28)
[2018-09-15] MEDS: ZITHROMAX 500 MG/NS 500 MG/250 ML IVPB IV SCH (16:31)
--- NOTE | 2018-09-15 20:08 | PROGRESS NOTE ---
DATE: 09/15/2018 SUBJECTIVE: Her breathing is a bit better. OBJECTIVE: Vital Signs: Blood pressure is 120/52, heart rate of 53, respiratory rate 18, temperature 98.3 degrees, she is 91% on 1 L but she was 76% on room air earlier. She seems much improved now though but she may have recently gotten some breathing treatments. Cardiovascular: Regular rate and rhythm. Pulmonary: Bilateral breath sounds. Clear to auscultation. Gastrointestinal: Abdomen was soft, nontender, nondistended. Bowel sounds are positive. At this point, breath sounds are diminished but apparent. LABORATORY DATA: White count 5, hemoglobin 13, hematocrit 43, platelets 208,000. Basic normal. Urine looked okay. ASSESSMENT/PLAN: 1. Influenza A. She is on Tamiflu. 2. Atypical pneumonia which may be a viral kind of process. We will repeat her chest x-ray tomorrow. Continue empiric antibiotics. She is on Rocephin and azithromycin. 3. Hypoxic respiratory failure. I do think she has progressive chronic obstructive pulmonary disease, emphysema, and she will likely need home oxygen, but we are looking at that. 4. Diabetes. Her blood sugars have been stable. She is on metformin. We will check an A1c. Continue sliding scale and follow. DISPOSITION: I think she is probably close to going home, possibly another 1 to 2 days pending her clinical status. cc: Chano Chester MD
[2018-09-15] MEDS: LIPITOR PO SCH (21:35)
[2018-09-16] MEDS: DUONEB (A & A) INH SCH ×6 (03:23→23:56)
[2018-09-16 07:48] LABS: BASO# 0.02 X1000 (0.0-0.2); BASO% 0.4 % (0.0-0.8); EOS# 0.22 X1000 (0.0-0.7); EOS% 4.6 % (0.0-10.0); HEMATOCRIT 43.7 % (37.0-47.0); HEMOGLOBIN 13.7 g/dL (12.0-16.0); IMM GRAN# 0.01 X1000 (0.0-0.04); IMM GRAN% 0.2 % (0.0-0.5); LYMPH# 0.97 X1000 (1.2-3.4); LYMPH% 20.1 % (20.5-51.1); MCH 25.8 PG (27-31); MCHC 31.4 g/dL (33-37); MCV 82.1 FL (81-99); MONO# 0.54 X1000 (0.11-0.59); MONO% 11.2 % (1.7-9.3); MPV 10.3 FL (7.4-10.4); NEUT# 3.07 X1000 (1.4-6.5); NEUT% 63.5 % (42.2-75.2); PLT 204 X1000 (130-400); RBC 5.32 XMIL (4.2-5.4); RDW 14.8 % (11.5-14.5); WBC 4.83 X1000 (4.8-10.8)
[2018-09-16 07:57] LABS: HEMOGLOBIN A1C 6.4 % (4.8-6.0)
[2018-09-16 08:17] LABS: AGAP 12; BUN 16 mg/dL (8-22); CALCIUM 8.8 mg/dL (8.8-10.2); CHLORIDE 100 mmol/L (98-107); COSMO 276; CREATININE 0.6 mg/dL (0.5-0.9); ESTIMATED GFR > 60; GLUCOSE 89 mg/dL (70-104); POTASSIUM 4.3 mmol/L (3.5-5.1); SODIUM 138 mmol/L (136-145); TCO2 26 mmol/L (25-35)
--- NOTE | 2018-09-16 08:25 | Diag Imaging Result Doc PS360 ---
EXAM: CHEST-2 VIEWS HISTORY: hypoxia TECHNIQUE: Two views COMPARISON: 09/14/2018 FINDINGS: There is persistent cardiomegaly. Slight decrease in bilateral interstitial infiltrates. Slight improved aeration of the left lung base with increased opacity right lung base. Trace effusions are unchanged. There is evidence of previous granulomatous disease. IMPRESSION: Increasing atelectasis or airspace disease right lung base. Slight improvement in bilateral interstitial infiltrates and aeration of the left lower lobe. Electronically signed by Michelle Scott 09/16/2018 8:23 AM
[2018-09-16] MEDS: ARICEPT PO SCH (08:59)
[2018-09-16] MEDS: CATAPRES PO SCH ×2 (09:00→21:22)
[2018-09-16] MEDS: ASPIRIN EC PO SCH (09:00)
[2018-09-16] MEDS: LOTENSIN PO SCH (09:00)
[2018-09-16] MEDS: TAMIFLU PO SCH ×2 (09:00→21:22)
[2018-09-16] MEDS: NORVASC PO SCH (09:00)
[2018-09-16] MEDS: LEXAPRO PO SCH (09:00)
[2018-09-16] MEDS: GLUCOPHAGE XR PO SCH (09:01)
[2018-09-16] MEDS: HUMULIN R (PARKWAY) SUBQ SCH ×4 (09:08→23:40)
[2018-09-16] MEDS: MUCOMYST 20% INH SCH ×2 (11:06→19:38)
[2018-09-16] MEDS: ROCEPHIN 1 GM in NS 50 ML IV SCH (16:43)
[2018-09-16] MEDS: ZITHROMAX 500 MG/NS 500 MG/250 ML IVPB IV SCH (17:29)
--- NOTE | 2018-09-16 18:53 | PROGRESS NOTE ---
DATE: 09/16/2018 SUBJECTIVE: The patient seems to be doing okay. No major complaints. OBJECTIVE: Vital Signs: Blood pressure 119/42, heart rate 52, respiratory rate 17, temperature 97.9 degrees, 95% on 2 L. Cardiovascular: Regular rate and rhythm. Pulmonary: Bilateral breath sounds. Clear to auscultation. Gastrointestinal: Abdomen soft, nontender, nondistended. Bowel sounds are positive. Her lungs sound pretty clear. LABORATORY DATA: White count 4, hemoglobin and hematocrit 13 and 43, heart rate of 204. Basic was normal. A1c is 6.4. PROBLEM LIST: 1. Influenza A. She is on Tamiflu to complete a course for 5 days. She was started on it on the so she will need 2 more days. 2. Atypical pneumonia. Continue Rocephin. Continue azithromycin and follow. Her x-ray does not look as improved but she has been ambulating apparently with her family member, which I think is excellent to help her with pulmonary toilet. 3. Hypoxic respiratory failure. I do think she has a strong component of emphysema and will need home oxygen, so we are going to set her up with that. 4. Diabetes appears to be well controlled. Her A1c is about 6.4. DISPOSITION: Anticipate discharge tomorrow. We will just need to set up home O2 if she qualifies which I think she will qualify. cc: Chano Chester MD
[2018-09-16] MEDS: LIPITOR PO SCH (21:22)
[2018-09-17] MEDS: DUONEB (A & A) INH SCH ×4 (03:38→15:10)
[2018-09-17 06:22] VITALS: BP 144/53
[2018-09-17] MEDS: HUMULIN R (PARKWAY) SUBQ SCH ×2 (06:49→11:15)
[2018-09-17] MEDS: MUCOMYST 20% INH SCH (08:03)
[2018-09-17] MEDS: NORVASC PO SCH (09:47)
[2018-09-17] MEDS: CATAPRES PO SCH (09:47)
[2018-09-17] MEDS: ARICEPT PO SCH (09:47)
[2018-09-17] MEDS: GLUCOPHAGE XR PO SCH (09:47)
[2018-09-17] MEDS: TAMIFLU PO SCH (09:47)
[2018-09-17] MEDS: LOTENSIN PO SCH (09:47)
[2018-09-17] MEDS: ASPIRIN EC PO SCH (09:47)
[2018-09-17] MEDS: LEXAPRO PO SCH (09:47)
[2018-09-17] MEDS ORDERED: PRINIVIL PO SCH (10:45)
[2018-09-17] MEDS ORDERED: SYNTHROID PO SCH (10:45)
[2018-09-17] MEDS: ROCEPHIN 1 GM in NS 50 ML IV SCH (13:25)
--- NOTE | 2018-09-18 03:40 | DISCHARGE SUMMARY ---
ADMISSION DATE: 09/14/2018 DISCHARGE DATE: 09/17/2018 PRIMARY CARE PHYSICIAN: Dr. Kaylyn Auguste. ADMISSION DIAGNOSES: 1. Influenza A. 2. Atypical pneumonia. 3. Acute respiratory failure. 4. Tobacco abuse. DISCHARGE DIAGNOSES: 1. Influenza A. 2. Atypical pneumonia. 3. Hypoxic respiratory failure, resolved. 4. Diabetes, appears to be well controlled. SUMMARY OF FINDINGS: This is a 78-year-old female who presented to the ER with complaints of fever, body aches, nasal drainage, sore throat, and a cough that began the day prior to arriving and progressively worsened. She tested positive for influenza A. Her influenza B was negative. She had a chest x-ray that showed increasing interstitial infiltrates with likely developing cardiogenic interstitial edema or an atypical pneumonia with trace effusion so she was admitted for further evaluation and treatment. She was noted on arrival to have a temperature of 101 degrees and her O2 saturation on room air was 90%. Her O2 saturation on room air was found to be 84% and so she has qualified for home O2. She has remained afebrile for greater than 24 hours and so it is felt that she can safely be discharged home with Home Health services. DISCHARGE MEDICATIONS: Lotrel / one p.o. daily, aspirin enteric coated 81 mg p.o. daily, atorvastatin 20 mg p.o. at bedtime, clonidine 0.2 mg p.o. b.i.d., donepezil 10 mg p.o. daily, escitalopram 20 mg p.o. daily, levothyroxine 50 mcg p.o. daily, metformin 500 mg p.o. daily, DuoNeb q.6 hours, Omnicef 300 mg p.o. b.i.d. #14 with no refills and Tamiflu 75 mg p.o. b.i.d. #4 with no refills. FOLLOW-UP: She will follow up with her primary care physician in 1 to 2 weeks and again she has Home Health services. TIME: 33 minute discharge. Dictated by GARRICK Arevalo for Chano Chester MD cc: GARRICK Arevalo MD Faye Wilson, MD
--- NOTE | 2018-09-18 03:45 | DISCHARGE SUMMARY ---
ADMISSION DATE: 09/14/2018 DISCHARGE DATE: 09/17/2018 DISCHARGE DIAGNOSIS: 1. Chronic obstructive pulmonary disease exacerbation. 2. Atypical pneumonia. 3. Influenza. 4. Type 2 diabetes. SUMMARY: Briefly, this is a 78-year-old female with longstanding history of smoking about 50 pack-years. She was admitted on the with hypoxia and shortness of breath. She was found to be flu A positive. She had a temp of 101 degrees. She had sats of 90%. Clinically, patient also had interstitial infiltrates and there was pulmonary emphysema noted on her chest x-ray. Patient slowly clinically improved. We were not able to wean her off oxygen though. Her saturations were sometimes as low as 76% although she did not look particularly symptomatic, but they were down the 76-83 on room air. Her breathing improved. Her chest x-ray on the still showed some interstitial infiltrates with some atelectasis. On the , she was stable. She was afebrile really since admission. She did qualify for home oxygen, that will be set up prior to discharge. DISCHARGE MEDICATIONS: Lipitor 20, Lotrel which is 5/20 daily, clonidine 0.2 b.i.d., Aricept 10 daily, Lexapro 20 daily, Synthroid 50 daily, metformin 500 daily, DuoNebs q.6, aspirin 81 daily, Omnicef 300 p.o. b.i.d. for 7 days and Tamiflu 75 b.i.d. for another 4 days. FOLLOWUP: She will get follow-up with her PCP, who is Kaylyn Auguste. TIME: 32 minute discharge. cc: Chano Chester MD
== END 2018-09-17 15:53 | disposition home health service (06) ==
LOC: P.ED 10:38 → P.MEDSURG 10:38 → OBSVTOIN 15:11 → INTOOBSV 15:11
PROVIDERS: ATTEND Internal Medicine
CPT/HCPCS: 36415; 71020; 71046; 80048; 80053; 81001; 82948; 83036; 85025; 87275; 87276; 87804; 94640; 94667; 94668; 94761; 94799; 96365; 99285; A9270; J0456; J0696; J7030; J7040; XXXXX